=== PATIENT | male | born 2000 | race American Indian/Alaskan Native ===

== ENCOUNTER 2021-11-01 22:41 | Emergency (ER) | payer SELFPAY ==
[2021-11-01 22:47] VITALS: BP 129/83
--- NOTE | 2021-11-02 06:30 | Emergency Department Report ---
ED Male HPI - General Chief complaint: Urogenital-Male Stated complaint: BURNING WITH URINATION Time Seen by Provider: 11/02/21 03:47 Source: patient Mode of arrival: Ambulatory Limitations: No Limitations - History of Present Illness MD Complaint: dysuria -: Gradual Location: penis Radiation: none Severity: mild Quality: dull Consistency: constant Improves with: none Worsens with: none denies: discharge, swelling, urinary retention, blood in urine, nausea/vomiting, incontinence - Related Data Previous Rx's Medication Instructions Recorded Last Taken Type Azithromycin [Zithromax TAB] 1,000 mg PO QDAY #2 11/02/21 Unknown Rx DOXYCYCLINE Hyclate [Vibramycin 100 mg PO Q12HR #20 capsule 11/02/21 Unknown Rx CAP] Allergies Allergy/AdvReac Type Severity Reaction Status Date / Time No Known Allergies Allergy Verified 11/01/21 22:53 ED Review of Systems ROS: Stated complaint: BURNING WITH URINATION Other details as noted in HPI Comment: All other systems reviewed and negative ED Past Medical Hx - Medications Home Medications: Home Medications Medication Instructions Recorded Confirmed Last Taken Type Azithromycin [Zithromax TAB] 1,000 mg PO QDAY #2 11/02/21 Unknown Rx DOXYCYCLINE Hyclate [Vibramycin 100 mg PO Q12HR #20 capsule 11/02/21 Unknown Rx CAP] ED Physical Exam - General Limitations: No Limitations General appearance: alert, in no apparent distress - Head Head exam: Present: atraumatic, normocephalic - Eye Eye exam: Present: normal appearance, PERRL, EOMI Pupils: Present: normal accommodation - ENT ENT exam: Present: normal exam, mucous membranes moist - Neck Neck exam: Present: normal inspection - Respiratory Respiratory exam: Present: normal lung sounds bilaterally. Absent: respiratory distress - Cardiovascular Cardiovascular Exam: Present: regular rate, normal rhythm. Absent: systolic murmur, diastolic murmur, rubs, gallop - GI/Abdominal GI/Abdominal exam: Present: soft, normal bowel sounds. Absent: guarding - Rectal Rectal exam: Present: deferred - exam: Absent: testicular tenderness, urethral discharge - Extremities Exam Extremities exam: Present: normal inspection, normal capillary refill - Back Exam Back exam: Present: normal inspection. Absent: CVA tenderness (R), CVA tenderness (L) - Neurological Exam Neurological exam: Present: alert, oriented X3, CN II-XII intact - Psychiatric Psychiatric exam: Present: normal affect, normal mood - Skin Skin exam: Present: warm, dry, intact, normal color. Absent: rash ED Course Vital Signs 11/01/21 22:44 Temperature 98.4 F Pulse Rate 77 Respiratory 18 Rate Blood Pressure 129/83 O2 Sat by Pulse 96 Oximetry Critical care attestation.: If time is entered above; I have spent that time in minutes in the direct care of this critically ill patient, excluding procedure time. ED Disposition Clinical Impression: Dysuria, UTI (urinary tract infection) Disposition: HOME / SELF CARE / HOMELESS Is pt being admited?: No Does the pt Need Aspirin: No Condition: Stable Instructions: Urodynamic Testing, Urinary Tract Infection, Adult, Dysuria Prescriptions: DOXYCYCLINE Hyclate [Vibramycin CAP] 100 mg PO Q12HR #20 capsule Azithromycin [Zithromax TAB] 1,000 mg PO QDAY #2 Referrals: [facility] [Provider Group] - 3-5 Days
== END 2021-11-02 06:40 | disposition home or self-care (01) ==
LOC: ED 22:41
DX: N39.0 Urinary tract infection, site not specified (principal); R30.0 Dysuria
CPT/HCPCS: 81001; 99283